=== PATIENT | male | born 1985 | race Caucasian/White ===

== ENCOUNTER 2020-03-05 09:21 | Day surgery (SDC) | payer BC ==
[2020-03-05] VITALS (8 sets, daily range): BP systolic 106–125; BP diastolic 46–72
[~2020-03-05] VITALS: Ht 189.2 cm; Wt 106.6 kg
[~2020-03-05 09:21] MED LIST: GABAPENTIN300 MG/61 ORAL; GABAPENTIN600 MG ORAL; LITHIUM CARBON300 MG ORAL
--- NOTE | 2020-03-05 09:57 | Pre-Procedure Note/Attestation ---
Pre-Procedure Note/Attestation Complete Prior to Procedure Planned Procedure: not applicable Procedure Narrative: colonoscopy Indications for Procedure Pre-Operative Diagnosis: diarrhea Attestation I attest that I discussed the nature of the procedure; its benefits; risks and complications; and alternatives (and the risks and benefits of such alternatives), prior to the procedure, with the patient (or the patient's legal fulfillment representative). I attest that, if there was a reasonable possibility of needing a blood horta sfusion, the patient (or the patient's legal fulfillment representative) was given the [facility] standardized written summary, pursuant to the [place] Mario Alberto Blood Safety Act ([place] Health and Safety Code # 1645, as amended). I attest that I re-evaluated the patient just prior to the surgery and that there has been no change in the patient's H&P, except as documented below: Nathan Daigle MD Mar 05, 2020 09:56
--- NOTE | 2020-03-05 09:59 | Short Stay Surgery H&P ---
History of Present Illness History of Present Illness Chief Complaint diarrhea HPI Nile Larios is a 34 year old male who was admitted on for Diarrhea, Abdominal Pain Patient History Allergies: Coded Allergies: MORPHINE (Verified Allergy, Severe, RASH, 03/02/20) PENICILLINS (Verified Allergy, Unknown, RASH , 03/02/20) PAST MEDICAL HISTORY: (1) Diarrhea (2) Bipolar 1 disorder Medication History Scheduled Gabapentin* (Gabapentin*), 600 MG ORAL THREE TIMES A DAY, (Reported) [place] Carbonate* ([place]*), 600 MG ORAL BID, (Reported) Review of Systems Cardiovascular: Reports: no symptoms Respiratory: Reports: no symptoms Skeletal: Reports: no symptoms Gastrointestinal: Reports: no symptoms Genitourinary: Reports: no symptoms Neurologic: Reports: no symptoms Endocrine: Reports: no symptoms Physical Exam Vital Signs Last Vital Signs Date Time Temp Pulse Resp B/P (MAP) Pulse Ox O2 Delivery O2 Flow Rate FiO2 03/05/20 09:42 97.5 60 20 114/63 97 Room Air Skin: normal HENT: normal Heart: normal Lungs: normal Abdomen: normal Extremities: normal Plan Plan of Care colonoscopy Attestation Are the patient's medical conditions optimized for surgery? Attestation Response: yes Nathan Daigle MD Mar 05, 2020 09:59
[2020-03-05] MEDS ORDERED: fentaNYL 100 mcg/2 mL IV ONE (10:05)
[2020-03-05] MEDS ORDERED: Midazolam 2mg/2ml Inj ONE (10:05)
--- NOTE | 2020-03-05 10:10 | Anethesia Preoperative Eval ---
Anesthesia Pre-op PMH/ROS General Date of Evaluation: Mar 05, 2020 Time of Evaluation: 10:10 Anesthesiologist: Govind ASA Score: ASA 2 Mallampati Score Class I : Soft palate, uvula, fauces, pillars visible Class II: Soft palate, uvula, fauces visible Class III: Soft palate, base of uvula visible Class IV: Only hard plate visible Mallampati Classification: Class II Surgeon: Pilo Diagnosis: Abdominal pain Surgical Procedure: Colonoscopy Anesthesia History: none Family History: no anesthesia problems Allergies: Coded Allergies: MORPHINE (Verified Allergy, Severe, RASH, 03/02/20) PENICILLINS (Verified Allergy, Unknown, RASH , 03/02/20) Medications: see eMAR Patient NPO?: Yes Past Medical History Cardiovascular: Reports: HTN - borderline; Denies: CAD, [place], valve dz, arrhythmia, other Pulmonary: Denies: asthma, COPD, [place], other Gastrointestinal/Genitourinary: Reports: GERD; Denies: CRI, ESRD, other Neurologic/Psychiatric: Reports: depression/anxiety, other - bipolar diorder; Denies: dementia, CVA, TIA Endocrine: Denies: DM, hypothyroidism, steroids, other HEENT: Denies: cataract (L), cataract (R), glaucoma, [place] (L), [place] (R), other Hematology/Immune: Denies: anemia, DVT, bleeding disorder, other Musculoskeletal/Integumentary: Denies: OA, RA, DJD, DDD, edema, other Other: other - overweight PMH Narrative: as above PSxH Narrative: pyloric stenosis, partial small bowel resection Anesthesia Pre-op Phys. Exam Physician Exam Last Vital Signs Date Time Temp Pulse Resp B/P (MAP) Pulse Ox O2 Delivery O2 Flow Rate FiO2 03/05/20 09:54 Room Air 03/05/20 09:42 97.5 60 20 114/63 97 Constitutional: NAD Neurologic: CN 2-12 intact Cardiovascular: RRR Respiratory: CTA Gastrointestinal: S/NT/ND Airway Exam Mallampati Score: Class II MO: full Neck: short ROM: full Teeth: intact Dentures: no upper, no lower Anesthesia Pre-op A/P Risk Assessment & Plan Assessment: ASA 2 Plan: Oz Franco MD Mar 05, 2020 10:10
[2020-03-05] MEDS ORDERED: LR 1000ml ONE (10:30)
--- NOTE | 2020-03-05 10:35 | Endoscopy Procedure Note ---
Endoscopy Procedure Note General Indication for Procedure: disrrhea Procedures Performed: colonoscopy Operative Findings/Diagnosis: one polyp Specimen: yes Pt Tolerated Procedure Well: Yes Estimated Blood Loss: none Anesthesia Anesthesiologist: sofie rodriguez Anesthesia: MAC Inserted Devices Implant(s) used?: No Quality Quality of Bowel Preparation: Good Did scope reach the cecum?: Yes Was there any complications?: No GI Core Measures 50 yrs or older w/o bx or poly: No 10yrs. F/U recommended: Yes If not recommended, why?: Above average risk 18 years or older w/prev. colo: No Nathan Daigle MD Mar 05, 2020 10:35
--- NOTE | 2020-03-05 10:44 | Immediate Post-Op Evaluation ---
Immediate Post-Op Evalulation Immediate Post-Op Evalulation Procedure: Colonoscopy Date of Evaluation: Mar 05, 2020 Time of Evaluation: 10:43 IV Fluids: 500 Blood Products: none` Estimated Blood Loss: none Urinary Output: none Blood Pressure Systolic: 110 Blood Pressure Diastolic: 62 Pulse Rate: 64 Respiratory Rate: 20 O2 Sat by Pulse Oximetry: 98 Temperature (Fahrenheit): 97.6 Pain Score (1-10): 1 Nausea: No Vomiting: No Complications none Patient Status: awake, patent, none Hydration Status: adequate Oz Faust MD Mar 05, 2020 10:44
--- NOTE | 2020-03-05 11:34 | 48 Hour Post Anesthesia Eval ---
Post Anesthesia Evaluation Procedure: Colonoscopy Date of Evaluation: Mar 05, 2020 Time of Evaluation: 11:33 Blood Pressure Systolic: 124 0: 72 Pulse Rate: 68 Respiratory Rate: 18 Temperature (Fahrenheit): 97.6 O2 Sat by Pulse Oximetry: 98 Airway: patent Nausea: No Vomiting: No Pain Intensity: 1 Hydration Status: adequate Cardiopulmonary Status: stable Mental Status/LOC: patient returned to baseline Follow-up Care/Observations: n/a Post-Anesthesia Complications: none Follow-up care needed: ready to discharge Oz Faust MD Mar 05, 2020 11:34
--- NOTE | 2020-03-05 11:45 | Procedure Note ---
DATE OF PROCEDURE: 03/05/2020 SURGEON: Nathan Daigle MD. PROCEDURE: Colonoscopy with biopsy. ANESTHESIA: Per Dr. Faust. INSTRUMENT: Olympus adult flexible colonoscope. INDICATION: Diarrhea. REASON FOR PROCEDURE: The procedure, risks, benefits, and possible consequences, including hemorrhage, aspiration, perforation and infection, and alternative treatments, were explained to the patient/legal guardian by Dr. Nathan Daigle and the patient/legal guardian understood and accepted these risks. PROCEDURE IN DETAIL: After informed consent was obtained and the patient was adequately sedated, first rectal exam was performed, which was positive for small internal hemorrhoids. Then, the scope was advanced from rectum into the cecum and then subsequently to terminal ileum. Quality of prep was good. In the TI, the patient has lymphoid aggregates. Random biopsy was obtained for evaluation of diarrhea. Also, random biopsy from the right and left colon was obtained to evaluate for diarrhea. The patient had one diminutive polyp in the ascending colon removed with cold biopsy forceps technique. Retroflexion of rectum showed evidence of small nonbleeding internal hemorrhoids. SUMMARY OF FINDINGS: 1. Diminutive polyp in the ascending colon, status post biopsy. 2. Internal hemorrhoids. 3. Status post random biopsy of TI, right and left colon for evaluation of diarrhea. RECOMMENDATIONS: 1. Follow biopsy results and treat accordingly. 2. Given one polyp, we recommend repeat colonoscopy in 5 years. Nathan Daigle M.D. DR: ANGELES JOB#: [id number] CC:
== END 2020-03-05 11:45 | disposition home or self-care (01) ==
LOC: GAS 09:21
DX: K63.5 Polyp of colon (principal); K64.8 Other hemorrhoids; F31.9 Bipolar disorder, unspecified; Z88.6 Allergy status to analgesic agent; Z88.0 Allergy status to penicillin; I10 Essential (primary) hypertension; K21.9 Gastro-esophageal reflux disease without esophagitis; F32.9 Major depressive disorder, single episode, unspecified; F41.9 Anxiety disorder, unspecified; E66.3 Overweight; Z68.29 Body mass index [BMI] 29.0-29.9, adult; D12.2 Benign neoplasm of ascending colon
CPT/HCPCS: 45380; 94003; J2250; J2704; J3010; J7120; U0002; 94150